=== PATIENT | male | born 1945 | race Caucasian/White ===

== ENCOUNTER 2017-04-09 10:17 | Day surgery (SDC) | payer MEDICARE ==
[2017-04-03 15:51] VITALS: BMI 28.7
[~2017-04-09 10:17] MED LIST: DEXAMETHASONE SOD PHOSPHATE 10 MG/ML 1 ML VIAL IV ONE; HEPARIN SODIUM,PORCINE 5,000 UNIT/ML 1 ML VIAL SQ ONE; HYDROmorphone 1 MG/ML 1 ML SYRINGE IVP PRN; MIDAZOLAM 2 MG/2 ML VIAL IV PRN; ONDANSETRON 4 MG/2 ML VIAL IVP ONE; ceFAZolin 2 GM in SODIUM CHLORIDE 0.9% 100 ML IVPB ONE
[2017-04-09] MEDS ORDERED: LIDOCAINE 1% 20 ML VIAL (10MG/ML) FOR IV START INTRADERMA ONE (11:20)
[2017-04-09] MEDS: LACTATED RINGERS 1,000 ML IV SCH ×2 (11:24→14:56)
[2017-04-09 11:32] LABS: Glucose,Whole Blood 116 mg/dL (75-99)
[2017-04-09] MEDS ORDERED: TAMSULOSIN 0.4 MG CAP.ER.24H PO STA (12:01)
--- NOTE | 2017-04-09 12:17 | P.GSHP ---
History of Present Illness H&P Date: 04/09/17 Chief Complaint: Left inguinal hernia Patient is known to our service. The patient is a symptomatically left inguinal hernia. Patient scrubbed a bulge that is fluctuating in size. Increased pain lately. He had 2 separate open writing or hernias in the past. No nausea or vomiting. Intermittent constipation. Past Medical History Past Medical History: Diabetes Mellitus, GERD/Reflux, Hyperlipidemia, Hypertension, Osteoarthritis (OA), Sleep Apnea/CPAP/BIPAP Additional Past Medical History / Comment(s): ARTHRITIS, HAD SURGERY FOR SLEEP APNEA, History of Any Multi-Drug Resistant Organisms: None Reported Past Surgical History: Adenoidectomy, Heart Catheterization, Hernia Repair, Joint Replacement, Tonsillectomy Additional Past Surgical History / Comment(s): sleep apnea surgery, LEFT KNEE REPLACEMENT, PAIN CLINIC PROCEDURES, Past Anesthesia/Blood Transfusion Reactions: No Reported Reaction Past Psychological History: No Psychological Hx Reported Smoking Status: Former smoker Past Alcohol Use History: Occasional Additional Past Alcohol Use History / Comment(s): STARTED SMOKING AT AGE 19 QUIT AT AGE 31 SMOKED 1/2-1PPD Past Drug Use History: None Reported - Past Family History Father Family Medical History: Myocardial Infarction ([place]) Additional Family Medical History / Comment(s): FROM [place] Sister(s) Family Medical History: Cancer Additional Family Medical History / Comment(s): THYROID CANCER Medications and Allergies Home Medications Medication Instructions Recorded Confirmed Type Allopurinol [Zyloprim] 300 mg PO MOWEFR 02/06/16 04/03/17 History Aspirin [Adult Low Dose Aspirin EC] 81 mg PO DAILY 02/06/16 04/03/17 History Glucosamine/Chondr Cueva A Sod [Osteo 1 tab PO BID 02/06/16 04/03/17 History Bi-Flex Caplet] Insulin Glargine [Lantus] 15 unit SQ DAILY 02/06/16 04/03/17 History Multivit-Min/FA/Lycopen/Lutein 1 tab PO DAILY 02/06/16 04/03/17 History [Centrum Silver Tablet] Tamsulosin HCl [Flomax] 0.4 mg PO HS 02/06/16 04/03/17 History Calcium Carbonate/Vitamin D3 1 each PO BID 04/03/17 04/03/17 History [Calcium 600-Vit D3 200 Tablet] Cholecalciferol (Vitamin D3) 2,000 unit PO BID 04/03/17 04/03/17 History [Vitamin D3] Valsartan/Hydrochlorothiazide 1 each PO DAILY 04/03/17 04/03/17 History [Valsartan-Hctz 320-12.5 mg Tab] predniSONE 10 mg PO BID 04/03/17 04/03/17 History Allergies Allergy/AdvReac Type Severity Reaction Status Date / Time Penicillins Allergy Rash/Hives Verified 04/03/17 15:14 Surgical - Exam Vital Signs Temp Pulse Resp BP Pulse Ox 98.2 F 52 L 18 121/74 96 04/09/17 11:13 04/09/17 11:13 04/09/17 11:13 04/09/17 11:13 04/09/17 11:13 Physical exam: General: Well-developed, well-nourished HEENT: Normocephalic, sclerae nonicteric Abdomen: Nontender, nondistended, reducible left hernia noted Extremities: No edema Neuro: Alert and oriented Results - Labs Abnormal Lab Results - Last 24 Hours (Table) 04/09/17 Range/Units 11:15 POC Glucose (mg/dL) 116 H (75-99) mg/dL Assessment and Plan (1) Left inguinal hernia Narrative/Plan: Will proceed with left inguinal herniorrhaphy using the laparoscopic approach and the da Serenity robotic assistance. Risks of bleeding, infection, conversion to an open procedure, bladder and bowel injury, recurrence, chronic pain were discussed. He understands wished to proceed. Status: Acute
[2017-04-09] MEDS ORDERED: GLYCOPYRROLATE 0.2 MG/ML 2 ML VIAL ONE (14:56)
[2017-04-09] MEDS ORDERED: ROCURONIUM BROMIDE 10 MG/ML 10 ML VIAL IV ONE (14:56)
[2017-04-09] MEDS ORDERED: SUCCINYLCHOLINE CHLORIDE 100 MG/5 ML SYR IV ONE (14:56)
[2017-04-09] MEDS ORDERED: PROPOFOL 10 MG/ML 20 ML VIAL IV ONE (14:56)
[2017-04-09] MEDS ORDERED: NEOSTIGMINE 1 MG/ML 10 ML VIAL ONE (14:56)
[2017-04-09] MEDS ORDERED: LIDOCAINE 1% INJ 10MG/ML (20 ML MDV) ONE (14:56)
[2017-04-09] MEDS ORDERED: MIDAZOLAM 2 MG/2 ML VIAL ONE (14:56)
[2017-04-09] MEDS ORDERED: fentaNYL (PF) 50 MCG/ML 2 ML AMP ONE (14:56)
[2017-04-09] MEDS ORDERED: BUPIVACAINE (PF) 0.25% 30 ML VIAL SQ ONE (15:24)
[2017-04-09] MEDS ORDERED: NALOXONE 0.4 MG/ML 1 ML VIAL IV PRN (16:37)
[2017-04-09] MEDS ORDERED: HYDROcodone/APAP 5-325MG 1 EACH TAB PO PRN (16:37)
--- NOTE | 2017-04-09 16:42 | P.OP ---
Date of Procedure: 04/09/17 Preoperative Diagnosis: Postoperative Diagnosis: Procedure(s) Performed: PREOPERATIVE DIAGNOSIS: Left inguinal hernia POSTOPERATIVE DIAGNOSIS: Same PROCEDURE: Laparoscopic repair left inguinal hernia with the da Serenity robot assistance SURGEON: Hitesh EBL: Minimal ANESTHESIA: General COMPLICATIONS: None OPERATIVE PROCEDURE: Patient was placed in the operating table in the supine position. The patient was then placed in lithotomy. The abdomen was prepped and draped in usual sterile fashion. A small vertical supraumbilical incision was made. The fascia was retracted anteriorly with Randy forceps. The Veress needle was inserted. The saline d rop test was normal. Insufflation took place to 15 mmHg. A 12 mm trocar was then inserted. 2 additional 8 mm trochars were placed in the right upper quadrant and left upper quadrant under visualization. The robotic arms were then brought in and docked into place. The fenestrated bipolar was used in the left arm and the laparoscopic teresita was utilized in the right arm. A 30 12 mm scope was used in the up position. The peritoneal cavity was inspected. The patient had a incarcerated left direct inguinal hernia. There was a portion of omental fat that was adherent to the peritoneum penetrating through the rectus space. This was able to be reduced bluntly. Following that careful dissection of the preperitoneal space took place. This took place using both electrocautery and sharp dissection and primarily blunt dissection. Visualization of the pubic tubercle and Dread's ligament took place medially. Full dissection took place laterally as well. The patient's hernia was fairly moderate in size and again involving the direct space. There was a small component of any indirect hernia as well. Once we had adequate space the 15 x 10 progrip mesh was advanced into the preperitoneal space and flattened out appropriately to cover all potential hernia sites. No sutures were used. The peritoneal defect was then closed using a locking 2-0 VLok suture. The pneumoperitoneum was then evacuated. The fascia at the 12 mm site was closed using the Scott Velasco technique and a 0 Vicryl stitch. The skin of all 3 sites was closed using a 4- 0 Monocryl stitch. Steri-Strips and sterile dressings were applied. DISPOSITION: Stable to recovery room Implants: Indications for Procedure: Operative Findings: Description of Procedure:
[2017-04-09 16:57] VITALS: RESP 16; TEMP 97.4
[2017-04-09 17:22] LABS: Glucose,Whole Blood 142 mg/dL (75-99)
[2017-04-09] MEDS ORDERED: HYDROcodone/APAP 5-325MG 1 EACH TAB PO ONE (18:15)
[2017-04-09 18:24] VITALS: BP 124/76; PULSE 88
== END 2017-04-09 19:20 | disposition home or self-care (01) ==
LOC: OR 10:17
PROVIDERS: ATTEND Surgery
DX: K40.90 Unilateral inguinal hernia, without obstruction or gangrene, not specified as recurrent (principal); E11.9 Type 2 diabetes mellitus without complications; E66.9 Obesity, unspecified; M10.9 Gout, unspecified; M35.3 Polymyalgia rheumatica; G47.30 Sleep apnea, unspecified; K21.9 Gastro-esophageal reflux disease without esophagitis; Z88.0 Allergy status to penicillin; Z79.82 Long term (current) use of aspirin; Z79.899 Other long term (current) drug therapy; Z79.4 Long term (current) use of insulin; Z79.52 Long term (current) use of systemic steroids; Z87.891 Personal history of nicotine dependence; Z82.49 Family history of ischemic heart disease and other diseases of the circulatory system
CPT/HCPCS: 49650; S2900

== ENCOUNTER → 2021-06-20 | Outpatient (CLI) | payer MEDICARE ==
--- NOTE | 2021-06-20 08:04 | US ---
EXAMINATION TYPE: US gallbladder DATE OF EXAM: 06/20/2021 COMPARISON: NONE CLINICAL HISTORY: K21.9 Gastro-esophageal reflux disease without .... Intermittent chest pain x 1 mon th EXAM MEASUREMENTS: Liver Length: 14.1 cm Gallbladder Wall: 0.1 cm CBD: 0.3 cm Right Kidney: 11.7 x 4.9 x 5.7 cm Pancreas: obscured by overlying midline bowel gas Liver: wnl Gallbladder: 0.9cm non mobile echogenic focus within neck Evidence for sonographic Silvestre's sign: no CBD: wnl Right Kidney: 0.4cm echogenic focus mid pole IMPRESSION: There is a 0.9 cm nonmobile, echogenic focus within the gallbladder neck, likely an impac tressa gallstone.
== END | disposition home or self-care (01) ==
LOC: RADUSWWP 07:07
PROVIDERS: ATTEND Family Medicine
DX: K82.8 Other specified diseases of gallbladder (principal)
CPT/HCPCS: 76705

== ENCOUNTER → 2022-02-13 | Outpatient (CLI) | payer MEDICARE ==
--- NOTE | 2022-02-14 03:25 | MR ---
EXAMINATION TYPE: MR shoulder RT wo con DATE OF EXAM: 02/13/2022 COMPARISON: None HISTORY: Right shoulder pain S/P fall 1 month ago. Multiplanar multiecho imaging of the right shoulder with no contrast. There is a large amount of fluid at the AC joint. There is hypertrophic spurring at the AC joint. The re is large rotator cuff tear with some retraction of the supraspinatus tendon. There is severe subac romial joint space narrowing. There is a small shoulder joint effusion. The glenoid debby appear inta ct. Subscapularis tendon is intact. There is some deformity and thinning of the biceps tendon. No fra cture seen. Humeral head is intact. There is some atrophy of the supraspinatus muscle. There is some thickening and increased signal in the infraspinatus tendon. There is severe narrowing of the glenohu meral joint space. IMPRESSION: Moderate osteoarthritic joint space narrowing. Significant spurring at the AC joint with subacromial impingement and osteophyte formation. AC joint fluid accumulation. Large tear of the supraspinatus tendon with some retraction. There are smaller tear of the infraspina tus tendon. No fracture seen. Mild shoulder joint effusion. Partial tear of the biceps tendon.
== END | disposition home or self-care (01) ==
LOC: RADMRIMAIN 19:07
PROVIDERS: ATTEND Family Medicine
DX: M19.011 Primary osteoarthritis, right shoulder (principal); S46.211A Strain of muscle, fascia and tendon of other parts of biceps, right arm, initial encounter; S46.011A Strain of muscle(s) and tendon(s) of the rotator cuff of right shoulder, initial encounter; W10.8XXA Fall (on) (from) other stairs and steps, initial encounter

== ENCOUNTER 2022-04-07 05:59 | Day surgery (SDC) | payer MEDICARE ==
[2022-04-05 10:53] VITALS: BMI 23.8
[~2022-04-07 05:59] MED LIST changes: -DEXAMETHASONE SOD PHOSPHATE 10 MG/ML 1 ML VIAL IV ONE; +DEXAMETHASONE SOD PHOSPHATE 4 MG/ML 1 ML VIAL IV ONE; -HEPARIN SODIUM,PORCINE 5,000 UNIT/ML 1 ML VIAL SQ ONE; -HYDROmorphone 1 MG/ML 1 ML SYRINGE IVP PRN; +LACTATED RINGERS 1,000 ML IV SCH; -ceFAZolin 2 GM in SODIUM CHLORIDE 0.9% 100 ML IVPB ONE
[2022-04-07 06:57] LABS: Glucose,Whole Blood 134 mg/dL (70-110)
[2022-04-07] MEDS ORDERED: HYDROmorphone 0.5 MG/0.5 ML SYRINGE IVP PRN (07:00)
[2022-04-07] MEDS ORDERED: MIDAZOLAM 2 MG/2 ML VIAL IVP ONE (07:11)
[2022-04-07] MEDS ORDERED: fentaNYL (PF) 50 MCG/ML 2 ML AMP IVP ONE (07:11)
[2022-04-07] MEDS ORDERED: PROPOFOL 10 MG/ML 20 ML VIAL IV ONE (07:46)
[2022-04-07] MEDS ORDERED: ROCURONIUM 10 MG/ML (5 ML VIAL) IV ONE (07:46)
[2022-04-07] MEDS ORDERED: ROPIVACAINE 5 MG/ML 30 ML VIAL ONE (07:46)
[2022-04-07] MEDS ORDERED: ePHEDrine 50 MG/ML 1 ML VIAL ONE (07:46)
[2022-04-07] MEDS ORDERED: SUCCINYLCHOLINE CHLORIDE 200 MG/10 ML VIAL IV ONE (07:46)
[2022-04-07] MEDS ORDERED: PHENYLEPHRINE-0.9% NACL SYG 1,000 MCG/10 ML SYRINGE ONE (07:46)
[2022-04-07] MEDS ORDERED: fentaNYL (PF) 50 MCG/ML 2 ML AMP ONE (07:46)
[2022-04-07] MEDS ORDERED: MIDAZOLAM 2 MG/2 ML VIAL ONE (07:46)
[2022-04-07] MEDS ORDERED: EPINEPHrine (PF) 1 ML in SODIUM CHLORIDE 0.9% IRRIGATIO 3,000 ML IRRIGATION ONE ×8 (07:51)
--- NOTE | 2022-04-07 08:19 | HP ---
HISTORY AND PHYSICAL CHIEF COMPLAINT: Right shoulder pain. HISTORY OF PRESENT ILLNESS: The patient is a 76-year-old, right-hand dominant, retired gentleman, who presents with right shoulder pain after an injury on 02/01/2022. He was carrying building supplies and fell on his right shoulder. He has had pain and weakness ever since. He is having night symptoms. He has been taking medications without much relief. He denies previous problems. PAST MEDICAL HISTORY: Significant for type 2 diabetes, osteoarthritis, and hypertension. PAST SURGICAL HISTORY: Significant for left total knee replacement. CURRENT MEDICATIONS: 1. Amlodipine. 2. Losartan. 3. Metformin. 4. Flomax. ALLERGIES: He has allergies to penicillin. FAMILY HISTORY: Significant for heart disease and cancer. SOCIAL HISTORY: Significant for social alcohol use. REVIEW OF SYSTEMS: A 16-point review of systems otherwise reviewed and is noncontributory. PHYSICAL EXAMINATION: GENERAL: The patient is approximately 5 feet 10 inches, 167 pounds of mesomorphic habitus. HEENT: Nonfocal. NECK: Supple. MUSCULOSKELETAL: On examination of the right shoulder, he is tender about the anterior subacromial space. Active range of motion of the right shoulder. Forward elevation 50 degrees, external rotation of the arm at the side 20 degrees, internal rotation to L4. Passively, I am able to forward-elevate him to 160 degrees. Motor strength 3+ over 5 for external rotation and abduction. Impingement test, Neer test, and Speed test are positive. His distal neurovascular exam appears intact in the right upper extremity. IMAGING: MRI report, right shoulder, shows evidence of a large rotator cuff tear with some retraction. Partial tear of the long head of the biceps is noted. IMPRESSION: Acute right rotator cuff tear. RECOMMENDATIONS: I talked to the patient at length regarding his condition along with treatment options. At this point, he is quite symptomatic, having pain and weakness after this acute injury. After thorough discussion, he opts to proceed with surgery. We will plan to proceed with arthroscopic evaluation with possible subacromial decompression along with rotator cuff repair versus debridement. We will likely perform this as an outpatient procedure. Risks and benefits were discussed at length in layman's terms. MMODL / IJN: [id number] /
--- NOTE | 2022-04-07 09:34 | P.OP ---
Date of Procedure: 04/07/22 Preoperative Diagnosis: Acute large right rotator cuff tear Postoperative Diagnosis: 5 cm retracted rotator cuff tear, high-grade partial-thickness tear intra- articular portion long head of the biceps Procedure(s) Performed: Right shoulder arthroscopic subacromial decompression/biceps tenotomy/rotator cuff repair Implants: Arthrex 4.75 mm swivel lock anchor 2, 5.5 mm swivel lock anchor 2 [facility] Surgeon: Sushil Gutierrez Estimated Blood Loss (ml): 10 Pathology: none sent Condition: stable Disposition: PACU Indications for Procedure: The patient's a 76-year-old male who presents after falling injuring his right shoulder recently with significant pain and weakness. Upon evaluation he was noted to have an acute large retracted right rotator cuff tear. A discussion of the risks and benefits of operative intervention versus conservative measures made with patient. He opted proceed with surgery. Operative risks to include infection, neurovascular injury, development of blood clots, possible tendon rerupture, possible postoperative stiffness and need for subsequent procedures was discussed. Informed consent was obtained. Operative Findings: As below Description of Procedure: The patient was brought to the operating room, and after induction of general anesthesia was placed in a beachchair position. A preoperative interscalene block was placed for postoperative analgesia. I examined the right shoulder. There was no gross block to passive motion or gross glenohumeral instability. The right upper extremity was prepped and draped in normal fashion. The bony o utlines the acromion, distal clavicle, and coracoid process were outlined with a skin marker. The glenohumeral joint was inflated with 50 mL of saline utilizing a spinal needle from posterior approach. A posterior portal was made through a 5 mm skin incision 1 cm medial and inferior to the posterior lateral border time. A blunt trocar was used to easily into the joint. Diagnostic arthroscopy was performed. An anterior portal was made just lateral to the coracoid process entering the joint above the subscapularis tendon. The subscapularis tendon appeared to be intact. Anterior labrum was intact. The inferior recess was inspected. The posterior labrum was intact. There was a high-grade partial- thickness tear of the long head of the biceps involving interarticular portion. It was elected to proceed with release at this point. This was released from the superior labrum with electrocautery and was allowed to retract to the bicipital groove. On inspection the rotator cuff, a full-thickness tear involving the supraspinatus and infraspinatus was noted with retraction almost to the glenoid. The arthroscope was placed into the subacromial space. A lateral portal was made 2 centimeters inferior to the anterior lateral border of the acromion. The rotator cuff was then mobilized with a traction suture. This was then brought back to the greater tuberosity. The soft tissue on the undersurface of the acromion was debrided with a motorized shaver and electrocautery clearly defining the anterior medial and lateral borders as well as the distal clavicle. An anterior inferior acromioplasty was performed with a motorized madina starting anterolateral, then extending this posteriorly, then extending this medially. I converted to a flat acromion and this was verified in the posterior and lateral viewing portals. The greater tuberosity was lightly decorticating with a shaver down to a bleeding bony surface. An accessory superior lateral portal was made just off the lateral edge of the acromion for anchor placement. 2 anchors were then placed just off the articular surface with the appropriate starting awl. 4.75 mm anchors preloaded with #2 fiber tape were placed. Good purchase was obtained. These fiber tapes were then passed the rotator cuff with a scorpion suture passer. A lateral row was created crisscrossing these tapes. 5.5 mm swivel lock anchors x2 were placed laterally. Good purchase was obtained. Final arthroscopic view showed adequate compression at the footprint. The arthroscope was then removed. The portals were closed with simple 3-0 nylon sutures. A sterile dressing was applied in addition to an abductor brace. The patient was then awoken from general anesthesia and transferred to recovery room in good condition. Blood loss was estimated at 10 mL. No complications were incurred. Sponge and needle counts were correct in the case. A nurse assisted during the major components of the case to include arm positioning, anchor placement, and rotator cuff repair.
[2022-04-07 09:56] VITALS: TEMP 97.3
[2022-04-07 10:40] VITALS: RESP 18
[2022-04-07 10:52] VITALS: BP 115/71; PULSE 82
--- NOTE | 2022-04-07 13:33 | P.ANPRN ---
Procedure Note - Anesthesia - Nerve Block Performed Right Interscalene Single Time Out Performed: Yes (0710) Date of Procedure: 04/07/22 Procedure Start Time: 07:11 Procedure Stop Time: 07:15 Location of Patient: PreOp Indication: Acute Post-Operative Pain, Requested by Surgeon Specifically requested for management of pain by : Sushil Gutierrez Sedation Type: Sedate with meaningful contact maintained Preparation: Sterile Prep Position: Supine Catheter: None Needle Types: Pajunk Needle Gauge: 21 Ultrasound used to visualize needle placement: Yes Ultrasound used to observe medication spread: Yes Injectate: 0.5% Ropivacaine (see comment for volume) (30cc) Blood Aspirated: No Pain Paresthesia on Injection Noted: No Resistance on Injection: Normal Image Stored and Saved: Yes Events: Uneventful and Well Tolerated
== END 2022-04-07 11:30 | disposition home or self-care (01) ==
LOC: OR 05:59
PROVIDERS: ATTEND Orthopaedic Surgery
DX: M75.121 Complete rotator cuff tear or rupture of right shoulder, not specified as traumatic (principal); S46.111A Strain of muscle, fascia and tendon of long head of biceps, right arm, initial encounter; M19.011 Primary osteoarthritis, right shoulder; G89.18 Other acute postprocedural pain; I10 Essential (primary) hypertension; E11.69 Type 2 diabetes mellitus with other specified complication; E78.5 Hyperlipidemia, unspecified; G47.33 Obstructive sleep apnea (adult) (pediatric); Z87.891 Personal history of nicotine dependence; K21.9 Gastro-esophageal reflux disease without esophagitis; Z88.0 Allergy status to penicillin; X58.XXXA Exposure to other specified factors, initial encounter; Z79.84 Long term (current) use of oral hypoglycemic drugs; Z79.899 Other long term (current) drug therapy; Z98.84 Bariatric surgery status; Z82.49 Family history of ischemic heart disease and other diseases of the circulatory system; Z80.8 Family history of malignant neoplasm of other organs or systems; Z96.652 Presence of left artificial knee joint
CPT/HCPCS: 64415; 76942; 29827; 29826; C1713 ×4; J2250; J0330; J1100; J0690; J2405; J0171; J3010; J2795; J2370; J2704

== ENCOUNTER → 2024-05-13 | Outpatient (CLI) | payer MEDICARE ==
--- NOTE | 2024-05-13 14:51 | US ---
EXAMINATION TYPE: US carotid duplex BILAT DATE OF EXAM: 05/13/2024 COMPARISON: NONE CLINICAL INDICATION: Male, 78 years old with history of R60.0 LOCALIZED EDEMA G45.3 AMAUROSIS FUGAX; Amaurosis fugax. Prior smoker, hypertension. TECHNIQUE: Carotid duplex ultrasound examination. Indirect Doppler criteria was utilized. FINDINGS: EXAM MEASUREMENTS: RIGHT: Peak Systolic Velocity (PSV) cm/sec ----- Right CCA: 92.1 ----- Right ICA: 90.2 ----- Right ECA: 160 ICA/CCA ratio: 0.98 RIGHT: End Diastole cm/sec ----- Right CCA: 18.4 ----- Right ICA: 28.3 ----- Right ECA: 22.2 LEFT: Peak Systolic Velocity (PSV) cm/sec ----- Left CCA: 118 ----- Left ICA: 85.5 ----- Left ECA: 159 ICA/CCA ratio: 0.72 LEFT: End Diastole cm/sec ----- Left CCA: 28.1 ----- Left ICA: 25.2 ----- Left ECA: 20.4 VERTEBRALS (direction of flow): Right Vertebral: Antegrade Left Vertebral: Antegrade Rhythm: Normal BOOTH MANAGER NOTES: Elevated velocities within bilateral ECAs. Plaque seen within bilateral bulbs an d proximal left ICA. IMPRESSION: Bilateral atherosclerotic plaque with no significant hemodynamic stenosis of the internal carotid art eries. Criteria for Assigning % of Stenosis / Diameter reduction (Estimation based on the indirect measurements of the internal carotid artery velocities (ICA PSV). 1. Normal (no stenosis)=ICA PSV < 125 cm/s: ratio < 2.0: ICA EDV<40 cm/s. 2. Less than 50% stenosis=ICA PSV < 125 cm/s: ratio < 2.0: ICA EDV<40 cm/s. 3. 50 to 69% stenosis=ICA PSV of 125 to 230 cm/s: ration 2.0 ? 4.0: ICA EDV 40-100 cm/s. 4. Greater than 70% stenosis to near occlusion= ICA PSV > 230 cm/s: ratio > 4.0: ICA EDV > 100 cm/s. 5. Near occlusion= ICA PSV velocities may be low or undetectable: variable ratio and ICA EDV. 6. Total occlusion=unable to detect flow.
== END | disposition home or self-care (01) ==
LOC: RADUSWWP 09:40
PROVIDERS: ATTEND Family Medicine
DX: I65.23 Occlusion and stenosis of bilateral carotid arteries (principal); I70.90 Unspecified atherosclerosis; I10 Essential (primary) hypertension; R60.0 Localized edema
CPT/HCPCS: 93880

== ENCOUNTER → 2024-05-22 | Outpatient (CLI) | payer MEDICARE ==
--- NOTE | 2024-05-22 13:46 | US ---
EXAMINATION TYPE: US arterial LE single level DATE OF EXAM: 05/22/2024 1:23 PM CLINICAL INDICATION: Male, 78 years old with history of R60.9 EDEMA, UNSPECIFIED R25.2 CRAMP AND SPAS M; bilateral leg cramping for 6-8 months History of: Smoker: previous Hypertension: yes Diabetic: borderline Hyperlipidemia: no TIA/CVA: no Previous Vascular Surgery: no PR: no Vascular Ulcers: no Claudication: no Gangrene: no Doppler Waveforms: Right: Multiphasic Left: Multiphasic Right Brachial Pressure: 123 Left Brachial Pressure: 134 Ankle-Brachial Indices: Right: 1.30 Left: 1.22 (Vessel hardening > 1.4; Normal 0.9 - 1.4, Moderate 0.7 - 0.9, Severe 0.5-0.7) IMPRESSION: Normal ankle-brachial indices bilaterally. [facility], , 05/22/2024 1:44 PM
--- NOTE | 2024-05-23 10:12 | CA ---
Transthoracic Echo Report Name: Douglas Camargo Age: 78 Gender: M : 1945 Exam Date: 05/22/2024 14:21 Exam Location: [place] [facility] Ht (in): 70 Wt (lb): 186 Ordering Physician: Glenn Lyle DO Attending/Referring Phys: Erick Singh [facility] Clinical Application Specialist Dang Lou RDCS Procedure CPT: Indications: R60.9 PERIPHERAL EDEMA Cardiac Hx: Technical Quality: Fair Contrast 1: Total Dose (mL): Contrast 2: Total Dose (mL): MEASUREMENTS (Male / Female) Normal Values 2D ECHO LV Diastolic Diameter PLAX 4.8 cm 4.2 - 5.9 / 3.9 - 5.3 cm LV Systolic Diameter PLAX 2.9 cm IVS Diastolic Thickness 1.1 cm 0.6 - 1.0 / 0.6 - 0.9 cm LVPW Diastolic Thickness 1.1 cm 0.6 - 1.0 / 0.6 - 0.9 cm LV Relative Wall Thickness 0.5 RV Internal Dim ED PLAX 4.3 cm LA Volume 68.7 cm??? 18 - 58 / 22 - 52 cm??? LA Volume Index 33.4 cm???/m??? 16 - 28 cm???/m??? M-MODE Aortic Root Diameter MM 3.2 cm LA Systolic Diameter MM 5.4 cm LA Ao Ratio MM 1.6 AV Cusp Separation MM 2.4 cm DOPPLER AV Peak Velocity 94.2 cm/s AV Peak Gradient 3.5 mmHg AV Mean Velocity 62.3 cm/s AV Mean Gradient 1.7 mmHg AV Velocity Time Integral 17.5 cm LVOT Peak Velocity 100.7 cm/s LVOT Peak Gradient 4.1 mmHg LVOT Velocity Time Integral 19.0 cm MV Area PHT 3.9 cm??? Mitral E Point Velocity 65.1 cm/s Mitral A Point Velocity 98.2 cm/s Mitral E to A Ratio 0.7 MV Deceleration Time 197.0 ms MV E' Velocity 11.0 cm/s Mitral E to MV E' Ratio 5.9 FINDINGS Left Ventricle Mildly increased left ventricular wall thickness. Left ventricular cavity size normal. Normal left ventricular systolic function with no obvious regional wall motion abnormalities. Grade 1 diastolic dysfunction. Left ventricular ejection fraction is estimated at 55-60 %. Right Ventricle Right ventricular dilatation. Right ventricular systolic pressure within normal limits. Right Atrium Normal right atrial size. Left Atrium Mildly increased left atrial volume. Mildly increased left atrial area. Mitral Valve Structurally normal mitral valve. Mild mitral regurgitation. Mitral valve thickened. Mitral annular calcification. Aortic Valve Trileaflet aortic valve. No aortic valve stenosis or regurgitation. Aortic valve sclerosis. Tricuspid Valve Structurally normal tricuspid valve. Mild tricuspid regurgitation. Pulmonic Valve Structurally normal pulmonic valve. Trace pulmonic regurgitation. Pericardium No pericardial effusion. Aorta Normal size aortic root and proximal ascending aorta. CONCLUSIONS Diagnosis bilateral lower extremity edema LVH with preserved systolic function ejection fraction 60% Mild RV enlargement Unable to evaluate IVC size and motion with respiration Mild left atrial enlargement Previewed by: Dr. Matthew Reynolds MD (Electronically Signed) Final Date: 23 May 2024 10:11
== END | disposition home or self-care (01) ==
LOC: RADUSWWP 12:56
PROVIDERS: ATTEND Family Medicine
DX: I11.9 Hypertensive heart disease without heart failure (principal); E11.9 Type 2 diabetes mellitus without complications; R25.2 Cramp and spasm; R60.9 Edema, unspecified; Z87.891 Personal history of nicotine dependence
CPT/HCPCS: 93306; 93922

== ENCOUNTER → 2025-02-28 | Outpatient (CLI) | payer MEDICARE ==
--- NOTE | 2025-02-28 16:36 | MR ---
EXAMINATION TYPE: MR lumbar spine wo con DATE OF EXAM: 02/28/2025 2:01 PM COMPARISON: 01/28/2025.. CLINICAL INDICATION: Male, 79 years old with history of M54.50 lumbar pain; PHH, Lower back pain, RLE radiculopathy. TECHNIQUE: Multi planar, multi sequence imaging was performed utilizing: T1-weighted, T2-weighted, a nd turbo inversion recovery imaging of the lumbar spine. IV Contrast: mL (None, if empty) FINDINGS: Alignment: The lumbar vertebral bodies have preserved heights and alignment. Cord: The conus medullaris and the distal spinal cord appear unremarkable with regards to their signa l intensity and morphology. Bones/Discs: Moderate to severe degeneration changes of the spine with scoliosis apex left L3. Modic endplate changes most pronounced at L3-L4. Facet joint arthropathy osteophytes and disc space narrowi ng with disc desiccation present throughout the spine. T12-L1: No evidence of significant spinal canal stenosis or neural foraminal stenosis. L1-L2: No evidence of significant spinal canal stenosis or neural foraminal stenosis. L2-L3: Disc bulge and facet joint arthropathy result in mild spinal canal and moderate bilateral neur al foraminal stenosis. L3-L4: Disc bulge and facet joint arthropathy result in severe spinal canal and mild bilateral neural foraminal stenosis. L4-L5: Disc bulge and facet joint arthropathy without significant spinal canal stenosis and severe le ft and moderate to severe right. Neural foraminal stenosis. L5-S1: The disc has a rounded posterior morphology without significant spinal canal stenosis. Facet j oint arthropathy with mild right and moderate severe left Neural foraminal stenosis. Left facet joint effusion is present. No significant spinal canal or neural foraminal stenosis in the remainder of the visualized levels. Other findings: Partially visualized left renal cortical atrophy signal cyst measuring up to 44 mm. No follow-up recommended. IMPRESSION: 1. L3-L4 severe spinal canal stenosis secondary disc bulge and facet joint arthropathy. Additionally there is severe right and moderate to severe left neural foraminal stenosis at this level. 2. Osteophyte formation with facet joint arthropathy with severe left L4-L5 and moderate to severe l eft L5-S1 neural foraminal stenosis. 3. Scoliosis with moderate disc degeneration with associated osteoarthritic changes worse at L2-L4. [facility], , 02/28/2025 4:34 PM
== END | disposition home or self-care (01) ==
LOC: RADMRIMAIN 02-24 09:41
PROVIDERS: ATTEND Family Medicine
DX: M51.360 Other intervertebral disc degeneration, lumbar region with discogenic back pain only (principal); M43.17 Spondylolisthesis, lumbosacral region; M41.86 Other forms of scoliosis, lumbar region; M48.061 Spinal stenosis, lumbar region without neurogenic claudication; M25.78 Osteophyte, vertebrae
CPT/HCPCS: 72148